=== PATIENT | male | born 1985 | race Caucasian/White ===

== ENCOUNTER 2016-09-04 13:26 | Emergency (ER) | payer OTHER ==
[~2016-09-04 13:26] MED LIST: ENDOCET1 TA3 PO
--- NOTE | 2016-09-04 14:29 | DIAGNOSTIC IMAGING REPORT ---
PROCEDURE: XR ANKLE 3 OR 4 VIEWS - RIGHT INDICATION: TRAUMA/INJURY TECHNIQUE: Four views. COMPARISON: None. FINDINGS: No acute fracture or dislocation. Normal ankle mortise. Large plantar calcaneal spur. Soft tissue swelling laterally . IMPRESSION: 1. No fracture 2. Soft tissue swelling laterally
--- NOTE | 2016-09-04 14:40 | ED NURSING NOTES ---
Clinical Report - Nurses [facility] [address] [place] [address] 09/04/2016 13:27 Patient: WES VEGA TRIAGE Triage time 13:39 Sep 04 2016. Acuity: LEVEL 4. Chief Complaint: RIGHT LOWER EXTREMITY PAIN and SWELLING. Location of symptoms- right ankle (pt reports going down a step last evening and "rolling my ankle" pt with pain to right ankle with swelling). Alert. No acute distress. SEPSIS SCREEN: Sepsis Screen. Negative (no infection suspected/documented). CELESTINE COMA SCORE: [place] Coma Scale: 15- eyes open spontaneously (4); best verbal response- oriented x 4 (5); best motor response- obeys commands (6). --13:43 Vivek Brar R.N. 13:39 09/04/16. BP: 145/84. HR: 94. RR: 17. O2 saturation: 100%. Temp: 98.2 F. Pain level now: 10/31. --13:43 Vivek Brar R.N. Weight: 131.5 kg stated. Height/Length: 67 inches Per Patient. BMI: 45.4. --13:41 Vivek Brar R.N. Medications None. --13:41 Vivek Brar R.N. Medication/allergy information source: the patient. --13:43 Vivek Brar R.N. Allergies None. --13:41 Vivek Brar R.N. History Arrived by private vehicle. Historian: patient. Accompanied by family. Injury occurred. Treatment TRANSIT MIXER DRIVER: Ice and (ice, heat, pt did not take any oral meds "I didn't have any at the house"). PAST MEDICAL HX: Tetanus status: up-to-date. Immunizations: up-to-date. SOCIAL HX: Former smoker. Occasional alcohol use. No drug use. No infectious disease exposure. ABUSE ASSESSMENT: No report of abuse. SELF HARM ASSESSMENT: A self harm assessment was performed. The patient answered "no" to the question "Do you have thoughts of harming or killing yourself?". FALL RISK ASSESSMENT: Fall risk assessment completed. No fall risk identified. NUTRITIONAL RISK ASSESSMENT: The nutritional risk assessment revealed no deficiencies. FUNCTIONAL ASSESSMENT: Functional assessment: no impairments noted. LEARNING NEEDS ASSESSMENT: The learning needs assessment revealed no barriers. SKIN INTEGRITY ASSESSMENT: Skin integrity risk assessment completed. No skin integrity risk identified. --13:43 Vivek Brar R.N. PROBLEMS: Fractured Phalanx (Toe). Pharyngitis. --13:41 Vivek Brar R.N. ADDITIONAL SURGERIES: Toe surgery. --13:41 Vivek Brar R.N. Interventions ID band on patient. To treatment room. --13:43 Vivek Brar R.N. PHYSICAL ASSESSMENT To room via wheelchair. GENERAL / NEURO / PSYCH: Oriented X 4. Alert. Appears in no acute distress. EXTREMITIES: Limited ROM present. Extremity pulses are within normal limits. Neuro-vascular status intact to the extremity. Right posterior ankle: swelling and lateral ankle: swelling. Base of the right 5th metatarsal: swelling. SKIN: Skin intact. Skin is warm and dry. --13:43 Vivek Brar R.N. NURSING PROGRESS NOTES Patient identifiers checked. Call light placed in reach. Side rails up. Bed placed in lowest position. Brakes of bed on. Patient ready for evaluation- chart flagged. Patient waiting for evaluation. --13:44 Vivek Brar R.N. Patient waiting for radiology results. --14:15 Vivek Brar R.N. 14:53 09/04/2016 Hydrocodone-APAP (Hydrocodone-Acetaminophen) PO 5/325 mg Tablets 1 tab given. Allergies verified, confirmed 5 rights and sedative warning given to the patient and patient's family. --15:03 Vivek Brar R.N. 4 inch douglas bandage applied to right ankle and right foot by nurse; distal pulses intact, sensation intact and motor function within normal limits. --15:04 Vivek Brar R.N. DISPOSITION / DISCHARGE No learning barriers present. Discharge instructions provided and reviewed with the patient. Reviewed medication(s) side effects, precautions, dosing and course information. Prescription(s) given to the patient. Patient verbalized understanding. Written instructions provided in Slovenian. The patient was discharged by the nurse practitioner. He was discharged home and accompanied by family. He left the Emergency Department ambulatory and via private vehicle. Family member driving. ( pt ambulatory to lobby with steady gait, given rx and f/u, douglas in place). --15:06 Vivek Brar R.N. 14:56 09/04/16. BP: 133/73. HR: 86. RR: 15. O2 saturation: 100%. Temp: deferred. Pain level now: 10/31. --15:06 Vivek Brar R.N. Locked/Released at 09/04/2016 23:39 by Vivek Brar R.N.
--- NOTE | 2016-09-04 14:40 | ED ORDER SUMMARY ---
..... Patient: WES VEGA OrderSheet [facility] VisitID: [id number] [address] [place] [address] 31y, M Registration Date/Time: 09/04/2016 ORDER SHEET Weight: 131.5 kg (stated) Allergies: None GENERAL ORDERS: Ankle 3 or 4V Right Urgent (13:43 09/04/2016 HBivens A.R.N.P.) (Ack 13:44 Alli) (13:58 Chema) Randal Wrap (14:40 09/04/2016 HBivens A.R.N.P.) (15:03 KPage-Kuchan R.N.) MEDICATION ORDERS: Hydrocodone-APAP PO 5/325 mg (NOW, HIGH ALERT MEDICATION) (14:40 09/04/2016 HBivens A.R.N.P.) (Ack 14:52 KPage-Kuchan R.N.) (15:03 KPage-Kuchan R.N.) IV FLUIDS: ORDER SHEET NOTES: [Electronically signed by Lisa MayR.N.PRamakrishna (17:46 09/04/2016)] [Electronically signed by Vivek Brar R.N. (23:39 09/04/2016)] [Electronically locked/signed by Vivek Brar R.N. (23:39 09/04/2016)]
--- NOTE | 2016-09-04 14:40 | ED NURSING NOTES ---
Clinical Report - Nurses [facility] [address] [place] [address] 09/04/2016 13:27 Patient: WES VEGA TRIAGE Triage time 13:39 Sep 04 2016. Acuity: LEVEL 4. Chief Complaint: RIGHT LOWER EXTREMITY PAIN and SWELLING. Location of symptoms- right ankle (pt reports going down a step last evening and "rolling my ankle" pt with pain to right ankle with swelling). Alert. No acute distress. SEPSIS SCREEN: Sepsis Screen. Negative (no infection suspected/documented). CELESTINE COMA SCORE: [place] Coma Scale: 15- eyes open spontaneously (4); best verbal response- oriented x 4 (5); best motor response- obeys commands (6). --13:43 Vivek Brar R.N. 13:39 09/04/16. BP: 145/84. HR: 94. RR: 17. O2 saturation: 100%. Temp: 98.2 F. Pain level now: 10/31. --13:43 Vivek Brar R.N. Weight: 131.5 kg stated. Height/Length: 67 inches Per Patient. BMI: 45.4. --13:41 Vivek Barr R.N. Medications None. --13:41 Vivek Brar R.N. Medication/allergy information source: the patient. --13:43 Vivek Brar R.N. Allergies None. --13:41 Vivek Brar R.N. History Arrived by private vehicle. Historian: patient. Accompanied by family. Injury occurred. Treatment TEACHERS' AIDE: Ice and (ice, heat, pt did not take any oral meds "I didn't have any at the house"). PAST MEDICAL HX: Tetanus status: up-to-date. Immunizations: up-to-date. SOCIAL HX: Former smoker. Occasional alcohol use. No drug use. No infectious disease exposure. ABUSE ASSESSMENT: No report of abuse. SELF HARM ASSESSMENT: A self harm assessment was performed. The patient answered "no" to the question "Do you have thoughts of harming or killing yourself?". FALL RISK ASSESSMENT: Fall risk assessment completed. No fall risk identified. NUTRITIONAL RISK ASSESSMENT: The nutritional risk assessment revealed no deficiencies. FUNCTIONAL ASSESSMENT: Functional assessment: no impairments noted. LEARNING NEEDS ASSESSMENT: The learning needs assessment revealed no barriers. SKIN INTEGRITY ASSESSMENT: Skin integrity risk assessment completed. No skin integrity risk identified. --13:43 Vivek Brar R.N. PROBLEMS: Fractured Phalanx (Toe). Pharyngitis. --13:41 Vivek Brar R.N. ADDITIONAL SURGERIES: Toe surgery. --13:41 Vivek Brar R.N. Interventions ID band on patient. To treatment room. --13:43 Vivek Brar R.N. PHYSICAL ASSESSMENT To room via wheelchair. GENERAL / NEURO / PSYCH: Oriented X 4. Alert. Appears in no acute distress. EXTREMITIES: Limited ROM present. Extremity pulses are within normal limits. Neuro-vascular status intact to the extremity. Right posterior ankle: swelling and lateral ankle: swelling. Base of the right 5th metatarsal: swelling. SKIN: Skin intact. Skin is warm and dry. --13:43 Vivek Brar R.N. NURSING PROGRESS NOTES Patient identifiers checked. Call light placed in reach. Side rails up. Bed placed in lowest position. Brakes of bed on. Patient ready for evaluation- chart flagged. Patient waiting for evaluation. --13:44 Vivek Brar R.N. Patient waiting for radiology results. --14:15 Vivek Brar R.N. 14:53 09/04/2016 Hydrocodone-APAP (Hydrocodone-Acetaminophen) PO 5/325 mg Tablets 1 tab given. Allergies verified, confirmed 5 rights and sedative warning given to the patient and patient's family. --15:03 Vivek Brar R.N. 4 inch douglas bandage applied to right ankle and right foot by nurse; distal pulses intact, sensation intact and motor function within normal limits. --15:04 Vivek Brar R.N. DISPOSITION / DISCHARGE No learning barriers present. Discharge instructions provided and reviewed with the patient. Reviewed medication(s) side effects, precautions, dosing and course information. Prescription(s) given to the patient. Patient verbalized understanding. Written instructions provided in Portuguese. The patient was discharged by the nurse practitioner. He was discharged home and accompanied by family. He left the Emergency Department ambulatory and via private vehicle. Family member driving. ( pt ambulatory to lobby with steady gait, given rx and f/u, douglas in place). --15:06 Vivek Brar R.N. 14:56 09/04/16. BP: 133/73. HR: 86. RR: 15. O2 saturation: 100%. Temp: deferred. Pain level now: 10/31. --15:06 Vivek Brar R.N. Locked/Released at 09/04/2016 23:39 by Vivek Brar R.N.
--- NOTE | 2016-09-04 14:40 | ED ORDER SUMMARY ---
..... Patient: WES VEGA OrderSheet [facility] VisitID: [id number] [address] [place] [address] 31y, M Registration Date/Time: 09/04/2016 ORDER SHEET Weight: 131.5 kg (stated) Allergies: None GENERAL ORDERS: Ankle 3 or 4V Right Urgent (13:43 09/04/2016 HBivens A.R.N.P.) (Ack 13:44 Alli) (13:58 Chema) Randal Wrap (14:40 09/04/2016 HBivens A.R.N.P.) (15:03 KPage-Kuchan R.N.) MEDICATION ORDERS: Hydrocodone-APAP PO 5/325 mg (NOW, HIGH ALERT MEDICATION) (14:40 09/04/2016 HBivens A.R.N.P.) (Ack 14:52 KPage-Kuchan R.N.) (15:03 KPage-Kuchan R.N.) IV FLUIDS: ORDER SHEET NOTES: [Electronically signed by Lisa MayR.N.PRamakrishna (17:46 09/04/2016)] [Electronically signed by Vivek Brar R.N. (23:39 09/04/2016)] [Electronically locked/signed by Vivek Brar R.N. (23:39 09/04/2016)]
--- NOTE | 2016-09-04 14:40 | ED CLINICAL REPORT ---
Clinical Report - Physicians/Mid Levels [facility] [address] [place] [address] 09/04/2016 13:27 Patient: WES VEGA Time Seen: 1345; upon arrival, initial patient contact, initial documentation, patient care assumed. Arrived- By private vehicle. Historian- patient. HISTORY OF PRESENT ILLNESS Chief Complaint: Injury to the right ankle. The injury happened yesterday. The patient sustained a twisting injury while stepping down (missed a stair/step and twisted ankle). Patient is experiencing severe pain. Patient denies injury to the head or neck. No other injury. REVIEW OF SYSTEMS The patient complains of pain on weight bearing. He has had swelling. No tingling, weakness, numbness, suspected foreign body or skin laceration. All systems otherwise negative, except as recorded above. PAST HISTORY See nurses notes. PROBLEMS: Fractured Phalanx (Toe). Pharyngitis. --13:41 Vivek Brar RFrancis. ADDITIONAL SURGERIES: Toe surgery. --13:41 Vivek Brar RFrancis. SOCIAL HISTORY Former smoker. Occasional alcohol use. No drug use. No recent travel. Is a local resident. He lives with spouse. FAMILY HISTORY No significant family medical history. ADDITIONAL NOTES The nursing notes have been reviewed with agreement regarding the chief complaint, HPI, ROS, PMH and patient medications and allergies. PHYSICAL EXAM Vital Signs: 09/04/2016 13:39 BP: 145/84. HR: 94. RR: 17. O2 saturation: 100%. Temp: 98.2 F. Pain level now: 910. Have been reviewed as normal and appear to be correct. Appearance: Alert. Oriented X3. No acute distress. Head: Head atraumatic. Eyes: Pupils equal, round and reactive to light. Eyes normal inspection. Respiratory: No respiratory distress. Skin: Skin intact. Skin warm and dry. Extremities: Ankle injury present. Right lateral ankle: mild tenderness and swelling and small ecchymosis of the lateral malleolus and dorsolateral foot. Limited ROM secondary to pain (diminished plantar flexion, dorsiflexion, inversion and eversion). Neurovascular intact distally. No ligamentous laxity present. No joint effusion. No erythema, laceration, abrasion, puncture wound or foreign body. No deformity. No foot injury. Foot and ankle exam otherwise negative. Extremities otherwise negative. Neuro, Vascular and Tendons: Vascular status intact. Sensation intact. Motor intact. Tendon function intact. Gait: Abnormal gait. Gait not tested due to pain. Neuro: Oriented X 3. No motor deficit. No sensory deficit. Note: isolated injury to ankle. LABS, X-RAYS, AND EKG X-Rays: Right ankle negative. Rt Ankle X-ray: (IMPRESSION: 1. No fracture 2. Soft tissue swelling laterally Electronically Final signed by:Nakul Garcia MD 09/04/2016 2:28:10 PM). PROGRESS AND PROCEDURES Patient counseled in person regarding the patient's stable condition, test results and diagnosis. 14:34. Differential Diagnosis: Other possible considerations: ankle sprain vs fx. Above considerations are based on history, physical exam and X-Ray data. Differential diagnosis was discussed with patient. Disposition: Discharged home in good and improved condition (14:40). Condition: good and stable. CLINICAL IMPRESSION Sprain of the tibiofibular ligament of the left ankle. INSTRUCTIONS Apply ice for 20 minutes four times a day for one days until better. Don't apply ice directly to skin. Wear elastic wrap (Randal wrap) as directed for one weeks until better. Elevate affected areas above chest level tomorrow until better. Warnings: GENERAL WARNINGS: Return or contact your physician immediately if your condition worsens or changes unexpectedly, if not improving as expected, or if other problems arise. Specifically return if problem worsens. Prescription Medications: Ultram 50 mg tablets: take 1-2 orally every 6 hours as needed for pain. Dispense twenty (20). No refills. Substitution is permissible. Follow-up: Follow up with your doctor in about one week as needed. Call for an appointment. Summary of care provided to patient. Understanding of the discharge instructions verbalized by patient. (Electronically signed by Lisa May A.R.NTuyet 09/04/2016 17:46)
--- NOTE | 2016-09-04 23:39 | ED MED RECONCILIATION SUMMARY ---
Patient: WES VEGA Medication Reconciliation Report [facility]erg[facility] VisitID: [id number] [address] [place] [address] 31y, M Registration Date/Time: 09/04/2016 Weight: 131.5 kg Height/Length: 67 in. BMI: 45.4 ALLERGIES: None The patient's Home Medications are listed below: NONE. The source(s) of the original Home Medication information: patient The following Medications were given to the patient in the Emergency Department: Hydrocodone-APAP [PO] PO 1 tab, administered: 09/04/2016 2:53:00 PM The following Medications were prescribed to the patient: Ultram 50 mg tablets: take 1-2 orally every 6 hours as needed for pain. Dispense twenty (20). No refills. Substitution is permissible. -- Lisa May A.R.N.P.
--- NOTE | 2016-09-04 23:39 | ED MED RECONCILIATION SUMMARY ---
Patient: WES VEGA Medication Reconciliation Report [facility] VisitID: [id number] [address] [place] [address] 31y, M Registration Date/Time: 09/04/2016 Weight: 131.5 kg Height/Length: 67 in. BMI: 45.4 ALLERGIES: None The patient's Home Medications are listed below: NONE. The source(s) of the original Home Medication information: patient The following Medications were given to the patient in the Emergency Department: Hydrocodone-APAP [PO] PO 1 tab, administered: 09/04/2016 2:53:00 PM The following Medications were prescribed to the patient: Ultram 50 mg tablets: take 1-2 orally every 6 hours as needed for pain. Dispense twenty (20). No refills. Substitution is permissible. -- Lisa May A.R.N.P.
--- NOTE | 2016-09-04 23:39 | ED MAR SUMMARY ---
..... Medication Administration Record [facility] [address] [place] [address] Patient: WES VEGA Visit ID: [id number] 31y, M Weight: 131.5 kg Height/Length: 67 in BMI: 45.4 ALLERGIES: None Given 14:53 09/04/2016 Vivek Brar R.N. Medication Administered: HYDROCODONE-APAP [PO] (HYDROCODONE-ACETAMINOPHEN), Dose: 1 tab 5/325 mg Tablets PO. Medication Ordered: Hydrocodone-APAP PO 5/325 mg (NOW, HIGH ALERT MEDICATION).
--- NOTE | 2016-09-04 23:39 | ED DISCHARGE INSTRUCTIONS ---
Patient: WES VEGA General Instructions [facility] VisitID: [id number] [place] [address] 31y, M Registration Date/Time: 09/04/2016 Sprain of the tibiofibular ligament of the left ankle. INSTRUCTIONS Apply ice for 20 minutes four times a day for one days until better. Don't apply ice directly to skin. Wear elastic wrap (Randal wrap) as directed for one weeks until better. Elevate affected areas above chest level tomorrow until better. Warnings: GENERAL WARNINGS: Return or contact your physician immediately if your condition worsens or changes unexpectedly, if not improving as expected, or if other problems arise. Specifically return if problem worsens. Prescription Medications: Ultram 50 mg tablets: take 1-2 orally every 6 hours as needed for pain. Dispense twenty (20). No refills. Substitution is permissible. Follow-up: Follow up with your doctor in about one week as needed. Call for an appointment. Summary of care provided to patient. Understanding of the discharge instructions verbalized by patient. ADDITIONAL INFORMATION Sprain, Ankle,With X-Ray A sprain is an injury to the ligaments or capsule that holds a joint together. There are no broken bones. Most sprains take from four to six weeks to heal. If the ligament is completely torn (severe sprain), it can take several months to recover. Mild to moderate sprains may be treated with an elastic wrap or an in-shoe splint to provide support and prevent re-injury. A mild sprain may not require any additional support. A severe sprain may require surgery to repair. Home care The following guidelines will help you care for your injury at home: Stay off the injured leg as much as possible until you can walk on it without pain. If you have a lot of pain with walking, crutches or a walker may be prescribed. (These can be rented or purchased at many pharmacies and surgical or orthopedic supply stores). Follow your doctor's advice regarding when to begin bearing weight on that leg. Keep your leg elevated to reduce pain and swelling. When sleeping, place a pillow under the injured leg. When sitting, support the injured leg so it is level with your waist. This is very important during the first 48 hours. Apply an ice pack (ice cubes in a plastic bag, wrapped in a towel) over the injured area for 20 minutes every 12 hours the first day. You can place the ice pack directly over the splint/cast. If you were given a boot, open it to apply the ice pack. Continue with ice packs 34 times a day for the next two days, then as needed for the relief of pain and swelling. You may use acetaminophen or ibuprofen to control pain, unless another pain medicine was prescribed. If you have chronic liver or kidney disease or ever had a stomach ulcer or GI bleeding, talk with your doctor before using these medicines. You may return to sports after healing, when you can run without pain. A sprained ankle is at risk for re-injury during the first six weeks. During that time, protect your ankle with an in-shoe splint that prevents tilting of your ankle from side to side. This is very important if you do active work or play sports during that time. Follow-up care Any X-rays you had today dont show any broken bones, breaks, or fractures. Sometimes fractures dont show up on the first X-ray. Bruises and sprains can sometimes hurt as much as a fracture. These injuries can take time to heal completely. If your symptoms dont improve or they get worse, talk with your doctor. You may need a repeat X-ray. When to seek medical care Get prompt medical attention if any of the following occur: The plaster cast or splint gets wet or soft The fiberglass cast or splint gets wet and does not dry for 24 hours Pain or swelling increases, or redness appears Toes become cold, blue, numb or tingly Re-injure your ankle Randal Wrap An "Randal Bandage" refers to any elastic bandage wrap (2-6" wide). This is used to apply support and compression to an arm or leg. It will help prevent or reduce swelling also. When applying the bandage, it should not be stretched too tightly. A tight Randal Wrap will reduce circulation and cause tingling or numbness in the hand or foot. It may increase the pain under the bandage. If you get these symptoms, remove the wrap and rest the limb. Symptoms should go away within 1-2 hours. Once symptoms go away, reapply the bandage with less stretch. If symptoms do not go away after 1-2 hours with the bandage off, call your doctor or return to this facility promptly. Tramadol Hydrochloride Oral tablet What is this medicine? TRAMADOL (TRA ma dole) is a pain reliever. It is used to treat moderate to severe pain in adults. How should I use this medicine? Take this medicine by mouth with a full glass of water. Follow the directions on the prescription label. If the medicine upsets your stomach, take it with food or milk. Do not take more medicine than you are told to take. Talk to your television parts tester regarding the use of this medicine in children. Special care may be needed. What side effects may I notice from receiving this medicine? Side effects that you should report to your doctor or health child care cook as soon as possible: allergic reactions like skin rash, itching or hives, swelling of the face, lips, or tongue breathing difficulties, wheezing confusion itching light headedness or fainting spells redness, blistering, peeling or loosening of the skin, including inside the mouth seizures Side effects that usually do not require medical attention (report to your doctor or health child care cook if they continue or are bothersome): constipation dizziness drowsiness headache nausea, vomiting What may interact with this medicine? Do not take this medicine with any of the following medications: MAOIs like Carbex, Eldepryl, Marplan, Nardil, and Parnate This medicine may also interact with the following medications: alcohol or medicines that contain alcohol antihistamines benzodiazepines bupropion carbamazepine or oxcarbazepine clozapine cyclobenzaprine digoxin furazolidone linezolid medicines for depression, anxiety, or psychotic disturbances medicines for migraine headache like almotriptan, eletriptan, frovatriptan, naratriptan, rizatriptan, sumatriptan, zolmitriptan medicines for pain like pentazocine, buprenorphine, butorphanol, meperidine, nalbuphine, and propoxyphene medicines for sleep muscle relaxants naltrexone phenobarbital phenothiazines like perphenazine, thioridazine, chlorpromazine, mesoridazine, fluphenazine, prochlorperazine, promazine, and trifluoperazine procarbazine warfarin What if I miss a dose? If you miss a dose, take it as soon as you can. If it is almost time for your next dose, take only that dose. Do not take double or extra doses. Where should I keep my medicine? Keep out of the reach of children. Store at room temperature between 15 and 30 degrees C (59 and 86 degrees F). Keep container tightly closed. Throw away any unused medicine after the expiration date. What should I tell my health care provider before I take this medicine? They need to know if you have any of these conditions: brain tumor depression drug abuse or addiction head injury if you frequently drink alcohol containing drinks kidney disease or trouble passing urine liver disease lung disease, asthma, or breathing problems seizures or epilepsy suicidal thoughts, plans, or attempt; a previous suicide attempt by you or a family member an unusual or allergic reaction to tramadol, codeine, other medicines, foods, dyes, or preservatives or trying to get breast-feeding What should I watch for while using this medicine? Tell your doctor or health child care cook if your pain does not go away, if it gets worse, or if you have new or a different type of pain. You may develop tolerance to the medicine. Tolerance means that you will need a higher dose of the medicine for pain relief. Tolerance is normal and is expected if you take this medicine for a long time. Do not suddenly stop taking your medicine because you may develop a severe reaction. Your body becomes used to the medicine. This does NOT mean you are addicted. Addiction is a behavior related to getting and using a drug for a non-medical reason. If you have pain, you have a medical reason to take pain medicine. Your doctor will tell you how much medicine to take. If your doctor wants you to stop the medicine, the dose will be slowly lowered over time to avoid any side effects. You may get drowsy or dizzy. Do not drive, use machinery, or do anything that needs mental alertness until you know how this medicine affects you. Do not stand or sit up quickly, especially if you are an older patient. This reduces the risk of dizzy or fainting spells. Alcohol can increase or decrease the effects of this medicine. Avoid alcoholic drinks. You may have constipation. Try to have a bowel movement at least every 2 to 3 days. If you do not have a bowel movement for 3 days, call your doctor or health child care cook. Your mouth may get dry. Chewing sugarless gum or sucking hard candy, and drinking plenty of water may help. Contact your doctor if the problem does not go away or is severe. You have been given the following additional information: Sprain, Ankle, With X-Ray Randal Wrap Tramadol Hydrochloride Oral tablet (Electronically signed by Lisa May A.R.N.P. 09/04/2016 17:46)
--- NOTE | 2016-09-04 23:39 | ED MAR SUMMARY ---
..... Medication Administration Record [facility] [address] [place] [address] Patient: WES VEGA Visit ID: [id number] 31y, M Weight: 131.5 kg Height/Length: 67 in BMI: 45.4 ALLERGIES: None Given 14:53 09/04/2016 Vivek Brar R.N. Medication Administered: HYDROCODONE-APAP [PO] (HYDROCODONE-ACETAMINOPHEN), Dose: 1 tab 5/325 mg Tablets PO. Medication Ordered: Hydrocodone-APAP PO 5/325 mg (NOW, HIGH ALERT MEDICATION).
== END 2016-09-04 14:56 | disposition home or self-care (01) ==
LOC: ED SRH 13:26
DX: S93.432A Sprain of tibiofibular ligament of left ankle, initial encounter (principal); W10.8XXA Fall (on) (from) other stairs and steps, initial encounter; Y93.9 Activity, unspecified; Y99.9 Unspecified external cause status; Y92.9 Unspecified place or not applicable; Z87.891 Personal history of nicotine dependence